=== PATIENT | male | born 2000 | race Caucasian/White ===

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

== ENCOUNTER 2021-06-16 02:55 | Emergency (ER) | payer OTHER, SELFPAY | END 2021-06-16 03:50 | disposition home or self-care (01) | LOC: ERS 02:55 | DX: M25.532 Pain in left wrist (principal) | CPT/HCPCS: 99283 ==